=== PATIENT | female | born 1950 | race Caucasian/White ===

== ENCOUNTER 2021-09-11 18:05 | Inpatient (IN) ==
[2021-09-12 00:45] LABS: Basophils % 0.3 %; Eosinophils % 0.3 %; Hematocrit 36.7 % (35.3-44.9); Immature Granulocytes % 0.3 % (0-4); Lymphocytes # 1.3 K/mcL (0.6-4.6); Lymphocytes % 10.7 %; Mean Corpuscular Hemoglobin 26.3 pg (28.0-33.3); Mean Corpuscular Volume 87.8 fL (83.0-100.0); Monocytes # 0.8 K/mcL (0.0-1.3); Monocytes % 6.8 %; Neutrophils # 9.6 K/mcL (1.6-8.9); Platelet Count 439 K/mcL (140-400); Red Blood Count 4.18 M/mcL (3.82-4.97); Red Cell Distribution Width 16.3 % (11.5-14.5); Segmented Neutrophils % 81.6 %
[2021-09-12 00:48] LABS: Alanine Aminotransferase 19 Units/L (7-52); Albumin 3.5 g/dL (3.5-5.7); Albumin/Globulin Ratio 0.8 (1.1-2.2); Alkaline Phosphatase 100 Units/L (34-104); Aspartate Amino Transferase 19 Units/L (13-39); Bilirubin,Direct 0.3 mg/dL (0.0-0.2); Bilirubin,Indirect 0.9 mg/dL (0.0-1.0); Bilirubin,Total 1.2 mg/dL (0.3-1.0); Blood Urea Nitrogen 34 mg/dL (8-23); Calcium 9.1 mg/dL (8.6-10.3); Carbon Dioxide 27 mEq/L (23-29); Chloride 95 mEq/L (98-107); Globulin 4.4 g/dL (2.4-3.5); Glucose 149 mg/dL (70-105); Osmolality,Calculated 284 (280-300); Potassium 4.6 mEq/L (3.5-5.1); Sodium 132 mEq/L (136-145); Total Protein 7.9 g/dL (6.4-8.9); Troponin I < 0.03 ng/mL (< 0.04)
[2021-09-12 00:51] LABS: BUN/Creatinine Ratio 28 (6-26); eGFR For African Americans 53 (> 60); eGFR For Non-African Americans 43 (> 60)
[2021-09-12 00:53] LABS: White Blood Count 11.7 K/mcL (4.3-11.1)
[2021-09-12 01:03] LABS: INR 1.5; Prothrombin Time 16.3 Seconds (9.4-12.1)
[2021-09-12 01:05] LABS: Activated Partial Thrombo Time 37.2 Seconds (26.0-36.0)
[2021-09-12] MEDS ORDERED: 0.9 % Sodium Chloride 1,000 ML IVC SCH (02:45)
[2021-09-12] MEDS ORDERED: Melatonin 3 MG TABLET PO PRN (03:01)
[2021-09-12] MEDS ORDERED: Naloxone 0.4 MG/ML INJ IVP PRN (03:01)
[2021-09-12] MEDS ORDERED: Perflutren Lipid Microsphere 1.3 ML in 0.9 % Sodium Chloride 8.7 ML IVP PRN (03:04)
[2021-09-12] MEDS ORDERED: D5% in Water 1,000 ML IVC PRN ×2 (03:08→13:32)
[2021-09-12] MEDS ORDERED: *HR* Dextrose 50 % in Water (Syg) 50 ML SYRINGE IVP PRN (03:08)
[2021-09-12] MEDS ORDERED: Dextrose Gel 15 GM/37.5 ML TUBE PO PRN ×2 (03:08)
[2021-09-12 05:36] LABS: Adenovirus Not Detected (Not Detect); Bordetella Pertussis Not Detected (Not Detect); Chlamydophila pneumoniae Not Detected (Not Detect); Coronavirus 229E Not Detected (Not Detect); Coronavirus HKU1 Not Detected (Not Detect); Coronavirus NL63 Not Detected (Not Detect); Coronavirus OC43 Not Detected (Not Detect); Human Metapneumovirus Not Detected (Not Detect); Human Rhinovirus/Enterovirus Not Detected (Not Detect); Influenza A Subtype 2009 H1 Not Detected (Not Detect); Influenza B Not Detected (Not Detect); Mycoplasma pneumoniae Not Detected (Not Detect); Parainfluenza Virus 1 Not Detected (Not Detect); Parainfluenza Virus 2 Not Detected (Not Detect); Parainfluenza Virus 3 Not Detected (Not Detect); Parainfluenza Virus 4 Not Detected (Not Detect); Respiratory Syncytial Virus Not Detected (Not Detect); SARS-CoV-2 Not Detected (Not Detect)
[2021-09-12] MEDS: Insulin LISPRO 300 UNITS/3 ML VIAL SUBQ SCH ×4 (06:31→20:25)
[2021-09-12 06:50] LABS: Bacteria,Urine Few per hpf (None-Few); Bilirubin,Urine Negative (Negative); Blood,Urine Negative (Negative); Clarity,Urine Turbid (Clear); Color,Urine Yellow (Yellow); Glucose,Urine (UA) Normal (Normal); Ketones,Urine Negative (Negative); Leukocyte Esterase,Urine Trace (Negative); Mucus,Urine Few per lpf (None-Few); Nitrite,Urine Negative (Negative); PH,Urine 5.5 pH Units (5.0-8.0); Protein,Urine 100 mg/dL (Neg-Trace); RBC,Urine 0-3 per hpf (0-3); Specific Gravity,Urine 1.016 (1.010-1.025); Squamous Epithelial Cell,Urine Few per hpf (None-Few); Urobilinogen,Urine Normal (Normal); WBC,Urine 15-30 per hpf (0-3)
[2021-09-12 06:59] LABS: Sodium, Urine 83.3 mEq/L
[2021-09-12 11:07] LABS: Hematocrit 33.9 % (35.3-44.9); Hemoglobin 10.4 g/dL (11.5-15.4); Mean Corpuscular HGB Conc 30.7 g/dL (31.6-35.5); Mean Corpuscular Hemoglobin 26.9 pg (28.0-33.3); Mean Corpuscular Volume 87.6 fL (83.0-100.0); Mean Platelet Volume 10.2 fL (9.4-12.4); Platelet Count 464 K/mcL (140-400); Red Blood Count 3.87 M/mcL (3.82-4.97); Red Cell Distribution Width 16.2 % (11.5-14.5)
[2021-09-12 11:17] LABS: INR 1.4
[2021-09-12 11:25] LABS: BUN/Creatinine Ratio 34 (6-26); Blood Urea Nitrogen 37 mg/dL (8-23); Calcium 8.9 mg/dL (8.6-10.3); Carbon Dioxide 27 mEq/L (23-29); Chloride 96 mEq/L (98-107); Glucose 162 mg/dL (70-105); Magnesium 2.2 mg/dL (1.6-2.6); Osmolality,Calculated 288 (280-300); Phosphorous 3.7 mg/dL (2.7-4.5); Sodium 133 mEq/L (136-145); eGFR For African Americans 60 (> 60); eGFR For Non-African Americans 49 (> 60)
[2021-09-12 12:21] LABS: Cancer Antigen 125 119 U/mL (Less than 35)
[2021-09-12 12:21] LABS: Lactate Dehydrogenase 171 Units/L (140-271); Total Protein 7.3 g/dL (6.4-8.9)
[2021-09-12 12:43] LABS: RBC,Pleural Fluid 11000 RBC/mcL
[2021-09-12 12:51] LABS: Total Protein,Pleural Fluid 4.2 g/dL
[2021-09-12 13:35] LABS: Eosinophils,Pleural Fluid 0 %
[2021-09-12 13:36] LABS: Basophils,Pleural Fluid 0 %
[2021-09-12 13:37] LABS: Appearance of Pleural Fl Hazy (Clear)
[2021-09-12] MEDS: *HR* OxyCODONE Immed Rel 5 MG TABLET PO PRN (20:35)
[2021-09-13 05:04] LABS: Basophils % 0.4 %; Eosinophils % 0.4 %; Hematocrit 34.6 % (35.3-44.9); Hemoglobin 10.3 g/dL (11.5-15.4); Immature Granulocytes % 0.4 % (0-4); Lymphocytes # 0.8 K/mcL (0.6-4.6); Lymphocytes % 11.3 %; Mean Corpuscular HGB Conc 29.8 g/dL (31.6-35.5); Mean Corpuscular Hemoglobin 26.2 pg (28.0-33.3); Mean Platelet Volume 10.1 fL (9.4-12.4); Monocytes # 0.5 K/mcL (0.0-1.3); Monocytes % 7.1 %; Neutrophils # 5.6 K/mcL (1.6-8.9); Platelet Count 407 K/mcL (140-400); Red Blood Count 3.93 M/mcL (3.82-4.97); Segmented Neutrophils % 80.4 %
[2021-09-13 05:20] LABS: BUN/Creatinine Ratio 36 (6-26); Blood Urea Nitrogen 39 mg/dL (8-23); Calcium 8.6 mg/dL (8.6-10.3); Carbon Dioxide 26 mEq/L (23-29); Chloride 96 mEq/L (98-107); Glucose 204 mg/dL (70-105); Osmolality,Calculated 283 (280-300); Potassium 4.6 mEq/L (3.5-5.1); Sodium 129 mEq/L (136-145); eGFR For African Americans > 60 (> 60); eGFR For Non-African Americans 50 (> 60)
[2021-09-13] MEDS: Insulin LISPRO 300 UNITS/3 ML VIAL SUBQ SCH ×4 (08:00→20:01)
[2021-09-13] MEDS ORDERED: Furosemide 20 MG/2 ML VIAL IVP ONE (13:13)
[2021-09-13] MEDS: amLODIPine 5 MG TABLET PO SCH (17:00)
[2021-09-13] MEDS: Letrozole 2.5 MG TABLET PO SCH (17:00)
[2021-09-13] MEDS: lisinopriL 5 MG TABLET PO SCH (17:00)
[2021-09-13] MEDS: Furosemide 20 MG/2 ML VIAL IVP SCH (17:01)
[2021-09-13] MEDS: Aspirin Enteric Coated 81 MG Tablet PO SCH (17:01)
[2021-09-13 18:12] LABS: Iron 12 mcg/dL (50-170)
[2021-09-13 18:31] LABS: Ferritin 575 ng/mL (10-120)
[2021-09-13 19:33] LABS: Folate > 22.3 ng/mL (3.0-16.0)
[2021-09-13] MEDS: *HR* OxyCODONE Immed Rel 5 MG TABLET PO PRN (20:00)
[2021-09-13] MEDS ORDERED: Gabapentin 300 MG CAPSULE PO SCH (21:00)
[2021-09-14 05:50] LABS: Basophils % 0.4 %; Eosinophils # 0.1 K/mcL (0.0-0.6); Eosinophils % 1.8 %; Hematocrit 30.8 % (35.3-44.9); Hemoglobin 9.1 g/dL (11.5-15.4); Immature Granulocytes % 0.4 % (0-4); Lymphocytes # 0.9 K/mcL (0.6-4.6); Mean Corpuscular HGB Conc 29.5 g/dL (31.6-35.5); Mean Corpuscular Hemoglobin 25.5 pg (28.0-33.3); Mean Corpuscular Volume 86.3 fL (83.0-100.0); Mean Platelet Volume 10.2 fL (9.4-12.4); Monocytes # 0.5 K/mcL (0.0-1.3); Neutrophils # 3.7 K/mcL (1.6-8.9); Platelet Count 343 K/mcL (140-400); Red Blood Count 3.57 M/mcL (3.82-4.97); Red Cell Distribution Width 15.9 % (11.5-14.5); Segmented Neutrophils % 71.4 %; White Blood Count 5.1 K/mcL (4.3-11.1)
[2021-09-14 06:06] LABS: BUN/Creatinine Ratio 34 (6-26); Blood Urea Nitrogen 36 mg/dL (8-23); Carbon Dioxide 32 mEq/L (23-29); Chloride 93 mEq/L (98-107); Glucose 131 mg/dL (70-105); Osmolality,Calculated 286 (280-300); Potassium 3.9 mEq/L (3.5-5.1); Sodium 133 mEq/L (136-145); eGFR For African Americans > 60 (> 60); eGFR For Non-African Americans 52 (> 60)
[2021-09-14] MEDS ORDERED: Perflutren Lipid Microsphere 1.3 ML in 0.9 % Sodium Chloride 8.7 ML IVP PRN (07:44)
[2021-09-14] MEDS: Letrozole 2.5 MG TABLET PO SCH (07:54)
[2021-09-14] MEDS: Aspirin Enteric Coated 81 MG Tablet PO SCH (07:54)
[2021-09-14] MEDS: lisinopriL 5 MG TABLET PO SCH (07:55)
[2021-09-14] MEDS: amLODIPine 5 MG TABLET PO SCH (07:55)
[2021-09-14] MEDS: Furosemide 20 MG/2 ML VIAL IVP SCH ×2 (07:56→18:29)
[2021-09-14] MEDS: Insulin LISPRO 300 UNITS/3 ML VIAL SUBQ SCH ×3 (07:56→17:38)
[2021-09-14] MEDS ORDERED: Gabapentin 300 MG CAPSULE PO SCH (09:00)
[2021-09-14 12:09] VITALS: O2SAT 93
[2021-09-14 16:25] VITALS: BP 137/59; PULSE 105; TEMP 98.6
[2021-09-15 13:18] LABS: Fluid Source for Cholesterol PLEURAL FLUID
[2021-09-15 14:07] LABS: Cholesterol,Body Fluid 71 mg/dL
[2021-09-16 07:25] LABS: % Iron Saturation 5 % (15-50); Transferrin 172 mg/dL (200-400)
[2021-09-16 14:15] LABS: Vitamin B12 117 pg/mL (250-1100)
[2021-09-17 09:54] LABS: ANA IgG by ELISA NONE DETECTED (None Detected)
== END 2021-09-14 20:37 | disposition home or self-care (01) | DRG 291 ==
LOC: EMEROOARM 18:05 → SUATTDRO 09-12 03:45 → 2NNU 09-12 03:45
PROVIDERS: ADMIT Internal Medicine; ATTEND Internal Medicine